=== PATIENT | female | born 1955 | race Caucasian/White ===

== ENCOUNTER 2018-07-04 13:59 | Emergency (ER) | END 2018-07-04 14:58 | disposition home or self-care (01) ==

== ENCOUNTER 2019-04-12 11:19 | Emergency (ER) | payer MEDICARE, OTHER ==
[~2019-04-12] VITALS: Ht 154.9 cm; Wt 57.3 kg
[~2019-04-12 11:19] MED LIST: CEFU500T45 PO; CIPR500T4 PO; HYDR-3498 PO; HYDR25TA6 PO; IBUP-1542 PO; IBUP-1561 PO; IBUP-725; NAPR-688; ONDA4TAB35 PO; PHEN-538 PO; SIMV40TA3 PO
[2019-04-12 11:22] VITALS: BP 151/75; PULSE 86; RESP 17; Ht 154.9 cm; Wt 57.3 kg
[2019-04-12] MEDS ORDERED: AZIT250T PO (11:38)
--- NOTE | 2019-04-12 11:42 | ERD ---
ER Documentation Chief Complaint Chief Complaint COUGH, CONGESTION, THROAT PAIN, EAR PAIN X3 DAYS HPI Patient is a 63-year-old female who is hard of hearing complaining of 3 days of cough, congestion, sore throat, and bilateral ear pain. She denies fever. No hemoptysis or unplanned weight loss. She is tried [id number] medications at home with no relief. ROS All systems reviewed and are negative except as per history of present illness. Medications Home Meds Active Scripts Azithromycin* (Zithromax*) 250 Mg Tablet, 250 MG PO .CARLO DIRECTED, #6 TAB TAKE 500 MG (2 TABS) THE FIRST DAY THEN 250 MG (1 TAB) DAYS 2-5 Prov:MENDOZA VARNER PA-C 04/12/19 Cefuroxime Axetil* (Cefuroxime Axetil*) 500 Mg Tablet, 500 MG PO BID for 10 Days, TAB Prov:LIZA MEJIA MD 07/04/18 Ibuprofen* (Motrin*) 400 Mg Tab, 400 MG PO Q6, #15 TAB Prov:LIZA MEIJA MD 07/04/18 Ciprofloxacin Hcl* (Ciprofloxacin Hcl*) 500 Mg Tablet, 500 MG PO BID for 10 Days, TAB Prov:JOAQUÍN ARELLANO NP 04/23/16 Phenazopyridine Hcl* (Pyridium*) 200 Mg Tab, 200 MG PO TID PRN for URINARY PAIN, #6 TAB Prov:JOAQUÍN ARELLANO NP 04/23/16 Ibuprofen* (Motrin*) 600 Mg Tab, 600 MG PO Q6H PRN for PAIN AND OR ELEVATED TEMP, #30 TAB Prov:JOAQUÍN ARELLANO NP 04/23/16 Ondansetron Hcl* (Zofran* ODT) 4 mg -ODT Tab.disper, 4 MG PO Q8 PRN for NAUSEA AND/OR VOMITING, #30 TAB Prov:JOAQUÍN ARELLANO NP 04/23/16 Hydrocodone Bit-Acetaminophen* ([place]*) 5-325 Mg Tab, 1 TAB PO Q6 PRN for PAIN, #20 TAB Prov:JOAQUÍN ARELLANO NP 04/23/16 Reported Medications Naproxen* (Naproxen*) 500 Mg Tablet 06/05/13 Ibuprofen (Motrin) 400 Mg Tablet 06/05/13 Simvastatin (Simvastatin) 40 Mg Tablet, 40 MG PO DAILY 09/13/12 Hydrochlorothiazide (Hydrochlorothiazide) 25 Mg Tablet, 25 MG PO DAILY 09/13/12 Allergies Allergies: Coded Allergies: No Known Allergy (Unverified , 03/07/15) PMhx/Soc History of Surgery: Yes (C SECTION) Anesthesia Reaction: No Hx Neurological Disorder: Yes (deafness) Hx Respiratory Disorders: No Hx Cardiac Disorders: Yes (HTN, HYPERLIPIDEMIA) Hx Psychiatric Problems: No Hx Miscellaneous Medical Probl: Yes (ARTHRITIS) Hx Alcohol Use: No Hx Substance Use: No Hx Tobacco Use: No FmHx Family History: No diabetes Physical Exam Vitals Vital Signs Date Temp Pulse Resp B/P (MAP) Pulse Ox O2 O2 Flow FiO2 Time Delivery Rate 04/12/19 99.0 86 17 151/75 96 11:22 (100) Physical Exam INITIAL VITAL SIGNS: Reviewed by me GENERAL: Awake, alert and oriented x 4, well appearing, nontoxic, speaking in full sentences. No acute distress HEAD: Atraumatic NECK: Supple. No masses. Full range of motion. No meningismus. No midline tenderness. EYES: EOMI. PERRL. EAR: No tenderness over the mastoids bilaterally. No exudates in the canals. TMs nonerythematous. NOSE: Normal nose. THROAT: Bilateral tonsillar erythema, no edema, no exudates, uvula midline, no kissing tonsils RESPIRATORY: Clear to auscultation bilaterally. Symmetric chest wall rise. No wheezing or rales. No accessory muscle use. CV: Regular rate and rhythm. No murmurs, rubs, or gallops. Procedures/MDM Patient presents with cough congestion sore throat and ear pain for 3 days. She is afebrile, well-appearing. Patient does have red tonsils but no exudates or swelling. a [id number] prescription for Z-Marlon given. Patient counseled regarding my diagnostic impression and care plan. Prior to discharge all questions answered. Pt agrees with treatment plan and understands strict return precautions. Pt is instructed to follow up with primary care provider within 24- 48 hours. Precautionary instructions provided including instructions to return to the ER if not improving or for any worsening or changing symptoms or concerns. Departure Diagnosis: Primary Impression: URI (upper respiratory infection) Condition: Stable Patient Instructions: Preventing Common Respiratory Infections Additional Instructions: Llame al doctor MAANA y richard herb STEFAN PARA DENTRO DE 1-2 HUTSON.Dgale a la secretaria que nosotros le instruimos hacer esta stefan.Avise o llame si blackmon condicin se empeora antes de la stefan. Regresa aqui si peor o no mejor. MENDOZA VARNER PA-C Apr 12, 2019 11:42
== END 2019-04-12 12:17 | disposition home or self-care (01) ==
LOC: FTE 11:19
DX: J06.9 Acute upper respiratory infection, unspecified (principal); I10 Essential (primary) hypertension
CPT/HCPCS: 99283